=== PATIENT | male | born 1990 | race Caucasian/White ===

== ENCOUNTER 2016-10-04 20:17 | Emergency (ER) | payer OTHER ==
[~2016-10-04] VITALS: Ht 167.6 cm; Wt 52.1 kg
[~2016-10-04 20:17] MED LIST: ADVIL200 MG PO; BACTRIM,SEPT1 TABLET PO; CEPHALEXIN500 MG PO; FOLIC ACID1 MG PO; KEFLEX500 MG PO; NOHOMEMEDS; TYLENOL EXTRA500 MG PO; Thiamine,Vitamin B1 PO
[2016-10-04 21:13] LABS: CHLORIDE 100 mEq/L (99-109); POTASSIUM 3.8 mEq/L (3.7-5.4); SODIUM 135 mEq/L (136-147)
[2016-10-04 21:15] LABS: GLUCOSE 103 mg/dL (70-99); HEMATOCRIT 43.1 % (38.0-50.0); MCH 24.2 PG (29.0-34.0); MCHC 32.5 G/DL (30.0-36.0); MCV 74.6 FL (86-99); PLATELET COUNT 142 K/uL (156-360); RBC DIS.WIDTH-CV 19.9 % (11.8-14.6); RBC DIS.WIDTH-SD 51.5 % (39-53); RED BLOOD COUNT 5.78 M/uL (4.00-5.50)
[2016-10-04 21:16] LABS: ANION GAP 9 MEQ/L (2-14)
[2016-10-04 21:17] LABS: TOTAL BILIRUBIN 0.4 mg/dL (0.0-1.0)
[2016-10-04 21:18] LABS: ALKALINE PHOSPHATASE 192 IU/L (3-129)
[2016-10-04 21:18] LABS: INFLUENZA A VIRAL ANTIGEN NEGATIVE; INFLUENZA B VIRAL ANTIGEN NEGATIVE
[2016-10-04 21:19] LABS: GFR ESTIMATE (CALCULATED) > 59 mL/min/
[2016-10-04 21:20] LABS: UREA NITROGEN (BUN) 7 mg/dL (9-23)
[2016-10-04 21:45] LABS: ANISOCYTOSIS 1+; EOSINOPHIL (%) 0 % (0-5); IMMATURE GRANULOCYTE (%) 2.7 % (0.0-0.7); IMMATURE GRANULOCYTE COUNT 0.1 K/uL; INSTRUMENT ABS NEUTROPHIL CT 1.2 K/uL; LYMPHOCYTE COUNT 1.6 K/uL (1.0-2.8); MICROCYTOSIS 1+; MONOCYTE (%) 4.4 % (3-12); MONOCYTE COUNT 0.1 K/uL (0-0.8); NEUTROPHIL (%) 39.9 % (45-76); NEUTROPHIL COUNT 1.2 K/uL (1.8-6.4); PLAT.SUFFICIENCY DECREASED; POIKILOCYTOSIS 1+
[2016-10-04 22:59] LABS: TROP-I INTERPRETATION NEGATIVE; TROPONIN-I < 0.01 ng/mL (0.0-0.30)
[2016-10-04 23:07] LABS: D-DIMER ELISA 3.25 mg/L FEU (< 0.57)
[2016-10-04 23:13] LABS: ADD MIUA? NO; BILIRUBIN NEGATIVE; BLOOD NEGATIVE; COLOR COLORLESS ((YELLOW)); GLUCOSE (STRIP) NEGATIVE; KETONES NEGATIVE; LEUKOCYTES NEGATIVE; NITRITE NEGATIVE; PROTEIN (STRIP) NEGATIVE; SPECIFIC GRAVITY 1.001 (1.000-1.030); UCUL ADDED? NO; UROBILINOGEN 0.2 MG/DL (0.2-1.0)
[2016-10-04 23:21] LABS: AMPHETAMINE NEGATIVE (500 ng/mL); BARBITURATES NEGATIVE (200 ng/mL); BENZODIAZEPINES NEGATIVE (150 ng/mL); COCAINE NEGATIVE (150 ng/mL); INTERNAL CONTROLS VALID? YES; METHADONE NEGATIVE (200 ng/mL); METHAMPHETAMINE NEGATIVE (500 ng/mL); OPIATES (MORPHINE) NEGATIVE (100 ng/mL); OXYCODONE NEGATIVE (100 ng/mL); PHENCYCLIDINE NEGATIVE (25 ng/mL); PROPOXYPHENE NEGATIVE (300 ng/mL); THC CANNABINOIDS NEGATIVE (50 ng/mL); TRICYCLIC ANTIDEPRESSANTS NEGATIVE (300 ng/mL)
[2016-10-05 00:23] LABS: INTERNAL CONTROL VALID? YES; MONOSPOT (MONONUCLEOSIS SEROL) NEGATIVE
[2016-10-05] MEDS ORDERED: MOTRIN600 MG PO (00:25)
[2016-10-05 00:42] VITALS: BP 111/70
== END 2016-10-05 00:42 | disposition home or self-care (01) ==
LOC: EME 20:17
PROVIDERS: Physician Assistant
DX: R50.9 Fever, unspecified (principal); R16.1 Splenomegaly, not elsewhere classified; M79.1 Myalgia; R05 Cough; R53.83 Other fatigue; R06.02 Shortness of breath; R07.9 Chest pain, unspecified; R00.0 Tachycardia, unspecified; F17.200 Nicotine dependence, unspecified, uncomplicated
CPT/HCPCS: 71020; 71275; 80053; 81003; 83605; 84484; 85025; 85379; 86308; 87040; 87502; 93005; 99281; 99285; J1885; J7030

== ENCOUNTER 2016-12-18 06:24 | Emergency (ER) | payer SELFPAY ==
[~2016-12-18] VITALS: Ht 167.6 cm; Wt 51.4 kg
[~2016-12-18 06:24] MED LIST changes: +MOTRIN600 MG PO
[2016-12-18] MEDS ORDERED: BACTRIM,SEPT1 TABLET PO (07:04)
[2016-12-18 07:11] VITALS: BP 109/81
[2016-12-18 07:22] LABS: INFLUENZA A VIRAL ANTIGEN NEGATIVE; INFLUENZA B VIRAL ANTIGEN NEGATIVE
== END 2016-12-18 07:12 | disposition home or self-care (01) ==
LOC: EME 06:24
DX: R50.9 Fever, unspecified (principal); J02.9 Acute pharyngitis, unspecified; L02.413 Cutaneous abscess of right upper limb; F17.200 Nicotine dependence, unspecified, uncomplicated
CPT/HCPCS: 87502; 87651 90; 99281; 99284